=== PATIENT | female | born 1985 | race African-American/Black ===

== ENCOUNTER 2017-12-31 14:12 | Emergency (ER) | payer OTHER ==
[~2017-12-31] VITALS: Ht 162.6 cm; Wt 85.5 kg
[~2017-12-31 14:12] MED LIST: FIORINAL2 PO; PROM25SU8 PO
[2017-12-31 14:21] VITALS: BP 121/76; PULSE 68; RESP 16; TEMP 97.9; O2SAT 98
[2017-12-31] MEDS ORDERED: [UNRECOGNIZED DRUG - OTHER] (14:42)
[2017-12-31] MEDS ORDERED: METF500T PO (14:42)
--- NOTE | 2017-12-31 14:50 | PD ---
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 She denies vaginal bleeding, vaginal discharge, dysuria, vomiting, diarrhea or other concurrent complaints. She denies taking any medication for the pain. She states she is not taking her metformin for a week as it just came in the mail today. Quality pain is sharp. Severity is severe per patient. Pain is worse with movement. She denies other modifying factors. Patient notes for years ago when she had another partner in addition to her boyfriend she had chlamydia that she has only had one partner since. [facility] Past Medical History Diabetes: Yes (type 2) Diminished Hearing: No ?: Not LMP: 12/05/17 Past Surgical History Other Surgery: Yes (btl) Social History Alcohol Use: No Tobacco Use: Yes (10/08 ppd) Substance Use: No Allergies-Medications (Allergen,Severity, Reaction): Coded Allergies: No Known Allergies (Unverified Adverse Reaction, Unknown, 12/31/17) Reported Meds & Prescriptions Reported Meds & Active Scripts Active Reported [fertility meds (2)] Metformin (Metformin HCl) 500 Mg Tab 500 Mg PO DAILY With a meal Review of Systems Except as stated in HPI: all other systems reviewed are Neg Physical Exam Narrative GENERAL: 32 y/o female in no apparent distress SKIN: Focused skin assessment warm/dry. HEAD: Atraumatic. Normocephalic. EYES: Pupils equal and round. No scleral icterus. No injection or drainage. ENT: No nasal bleeding or discharge. Mucous membranes pink and moist. NECK: Trachea midline. CARDIOVASCULAR: Regular rate and rhythm. RESPIRATORY: No accessory muscle use. Clear to auscultation. Breath sounds equal bilaterally. GASTROINTESTINAL: Abdomen soft, ttp in suprapubic area, nondistended. no rebound MUSCULOSKELETAL: No obvious deformities. No clubbing. No cyanosis. No edema. NEUROLOGICAL: Awake and alert. Motor grossly within normal limits. Normal speech. GENITOURINARY: Normal external genitalia without lesions or erythema. Vaginal vault without blood, small amount of white drainage. Cervical os was closed without drainage. No cervical motion tenderness. Uterus nontender. Bilateral adnexa nontender Data Data Last Documented VS Vital Signs Date Time Temp Pulse Resp B/P (MAP) Pulse Ox O2 Delivery O2 Flow Rate FiO2 12/31/17 18:24 68 16 114/61 (78) 100 Room Air 12/31/17 14:21 97.9 Orders Orders Ed Urine Pregnancytest Poc (12/31/17 14:33) Urinalysis - C+S If Indicated (12/31/17 14:45) Blood Glucose (12/31/17 14:45) Gc And Chlamydia Pcr (12/31/17 14:45) Wet Prep Profile (12/31/17 14:45) Ct Abd/Pel W/O Iv Contrast (12/31/17 ) Us Pelvis Comp Mixer Lever Operator/Non-Preg (12/31/17 16:52) Iv Access Insert/Monitor (12/31/17 16:52) Complete Blood Count With Diff (12/31/17 16:52) Basic Metabolic Panel (Bmp) (12/31/17 16:52) Morphine Inj (Morphine Inj) (12/31/17 17:00) Ondansetron Inj (Zofran Inj) (12/31/17 17:00) Labs Laboratory Tests Test 12/31/17 14:55 12/31/17 17:05 Urine Color YELLOW Urine Turbidity CLEAR Urine pH 6.0 Urine Specific [place] GREATER/EQUAL 1.030 Urine Protein NEG mg/dL Urine Glucose (UA) NEG mg/dL Urine Ketones TRACE mg/dL Urine Occult Blood NEG Urine Nitrite NEG Urine Bilirubin NEG Urine Urobilinogen 1.0 MG/DL Urine Leukocyte Esterase NEG Urine RBC 0-3 /hpf Urine WBC 3-5 /hpf Urine Squamous Epithelial Cells 0-5 /hpf Urine Bacteria OCC /hpf Microscopic Urinalysis Comment CULT NOT INDICATED Clue Cells (Wet Prep) NONE SEEN Vaginal Trichomonas (Wet Prep) NONE SEEN Vaginal Yeast (Wet Prep) NONE SEEN White Blood Count 14.0 TH/MM3 Red Blood Count 5.00 MIL/MM3 Hemoglobin 13.1 GM/DL Hematocrit 39.8 % Mean Corpuscular Volume 79.6 FL Mean Corpuscular Hemoglobin 26.2 PG Mean Corpuscular Hemoglobin Concent 33.0 % Red Cell Distribution Width 13.3 % Platelet Count 239 TH/MM3 Mean Platelet Volume 8.4 FL Neutrophils (%) (Auto) 74.4 % Lymphocytes (%) (Auto) 20.7 % Monocytes (%) (Auto) 4.3 % Eosinophils (%) (Auto) 0.3 % Basophils (%) (Auto) 0.3 % Neutrophils # (Auto) 10.5 TH/MM3 Lymphocytes # (Auto) 2.9 TH/MM3 Monocytes # (Auto) 0.6 TH/MM3 Eosinophils # (Auto) 0.0 TH/MM3 Basophils # (Auto) 0.0 TH/MM3 CBC Comment DIFF FINAL Differential Comment Blood Urea Nitrogen 11 MG/DL Creatinine 0.77 MG/DL Random Glucose 81 MG/DL Calcium Level 8.8 MG/DL Sodium Level 137 MEQ/L Potassium Level 3.9 MEQ/L Chloride Level 106 MEQ/L Carbon Dioxide Level 25.1 MEQ/L Anion Gap 6 MEQ/L Estimat Glomerular Filtration Rate 107 ML/MIN MDM Medical Decision Making Medical Screen Exam Complete: Yes Emergency Medical Condition: Yes Medical Record Reviewed: Yes (pmh confirmed) Interpretation(s) glucose is normal at 90 beta is negative CBC & BMP Diagram 12/31/17 17:05 Calcium Level 8.8 Last 24 hours Impressions Abdomen/Pelvis CT 12/31/17 0000 Signed Impressions: Service Date/Time: Sunday, December 31, 2017 16:18 - CONCLUSION: 1. Large complex cystic mass in the right adnexa measuring up to 11.4 x 5.5 cm. Recommend ultrasound followup. Upper abdomen unremarkable. Dillan Carty MD Pelvic ultrasound shows 10.9 cm complex ovarian cysts. Discussed with radiologist and states no torsion Differential Diagnosis Cyst, musculoskeletal strain, UTI, , ectopic Narrative Course Will check Accu-Chek, urinalysis, test and reevaluate test is negative. Will proceed with CT imaging given amount of pain and reevaluate CT with large ovarian cyst will add on blood work and ultrasound to rule out torsion and dose with morphine and Zofran Ultrasound shows 10.9 cm complex ovarian cysts. We'll discuss with gynecology Patient updated and agrees to transfer Physician Communication Physician Communication dr udran requests ed to ed transfer for evaluation dr white given report Diagnosis Primary Impression: Complex cyst of right ovary Additional Impression: Abdominal pain Qualified Codes: R10.31 - Right lower quadrant pain Lavinia Loya MD Dec 31, 2017 14:50
[2017-12-31 15:21] LABS: BILIRUBIN, URINE NEG (NEG); BLOOD, URINE NEG (NEG); GLUCOSE,URINE NEG (NEG); KETONE, URINE TRACE mg/dL (NEG); NITRITE,URINE NEG (NEG); URINE COLOR YELLOW (YELLW/STRAW); URINE LEUKOCYTE ESTERASE NEG (NEG)
[2017-12-31 15:58] LABS: BACTERIA, URINE OCC /hpf; RBC, URINE 0-3 /hpf (0-3); SQUAMOUS EPITHELIAL CELL URINE 0-5 /hpf (0-5)
[2017-12-31 16:44] VITALS: BP 107/56; PULSE 67; RESP 17; O2SAT 100
--- NOTE | 2017-12-31 16:48 | RADRPT ---
EXAM DATE/TIME: 12/31/2017 16:18 [facility] COMPARISON: No previous studies available for comparison. INDICATIONS : Lower abdominal pain. ORAL CONTRAST: No oral contrast ingested. RADIATION DOSE: 15.54 CTDIvol (mGy) MEDICAL HISTORY : Diabetes. SURGICAL HISTORY : None. ENCOUNTER: Initial ACUITY: 1 day PAIN SCALE: 5/10 LOCATION: lower quadrant TECHNIQUE: Volumetric scanning of the abdomen and pelvis was performed. Using automated exposure control and ad justment of the mA and/or kV according to patient size, radiation dose was kept as low as reasonably achievable to obtain optimal diagnostic quality images. DICOM format image data is available electro nically for review and comparison. FINDINGS: Lung bases are clear. No acute findings in the liver, spleen, adrenals, kidneys or pancreas. No galls tones or biliary ductal dilatation. No bowel obstruction. No free air or free fluid. There is an oval-shaped pelvic mass on the right measuring up to 11.4 x 5.5 cm. They appear to be mul tiple septations measures in the complex cyst. Recommend followup on pelvic ultrasound. CONCLUSION: 1. Large complex cystic mass in the right adnexa measuring up to 11.4 x 5.5 cm. Recommend ultrasound followup. Upper abdomen unremarkable. Dillan Carty MD on December 31, 2017 at 16:43 Board Certified Radiologist. This report was verified electronically.
[2017-12-31] MEDS ORDERED: MORPHINE SULFATE 4 MG/ML INJ IV PUSH ONE (17:00)
[2017-12-31] MEDS ORDERED: ONDANSETRON HCL 4 MG/2 ML VIAL IV PUSH ONE (17:00)
[2017-12-31 17:29] LABS: AUTOMATED NEUTROPHIL # 10.5 TH/MM3 (1.8-7.7); BASOPHIL % 0.3 % (0.0-2.0); EOSINOPHIL % 0.3 % (0.0-4.0); HEMATOCRIT 39.8 % (35.0-46.0); HEMOGLOBIN 13.1 GM/DL (11.6-15.3); LYMPH % 20.7 % (9.0-44.0); LYMPHOCYTE # 2.9 TH/MM3 (1.0-4.8); MEAN CELL VOLUME 79.6 FL (80.0-100.0); MEAN CORPUSCULAR HEMOGLOBIN 26.2 PG (27.0-34.0); MEAN PLATELET VOLUME 8.4 FL (7.0-11.0); MONO % 4.3 % (0.0-8.0); MONOCYTE # 0.6 TH/MM3 (0-0.9); NEUT % 74.4 % (16.0-70.0); PLATELET COUNT 239 TH/MM3 (150-450); RED CELL DISTRIBUTION WIDTH 13.3 % (11.6-17.2)
[2017-12-31 17:42] LABS: CALCIUM 8.8 MG/DL (8.5-10.1)
[2017-12-31 17:43] LABS: BICARBONATE 25.1 MEQ/L (21.0-32.0)
[2017-12-31 17:46] LABS: CREATININE 0.77 MG/DL (0.50-1.00)
--- NOTE | 2017-12-31 18:11 | RADRPT ---
EXAM DATE/TIME: 12/31/2017 17:31 This report includes an Addendum and supersedes previous reports for this exam. [facility] COMPARISON: CT ABDOMEN & PELVIS W/O CONTRAST, December 31, 2017, 16:18. INDICATIONS : Right lower quadrant pain. MEDICAL HISTORY : Chronic back pain. Diabetes. SURGICAL HISTORY : None. ENCOUNTER: Initial ACUITY: 1 day PAIN SCORE: 8/10 LOCATION: Right lower quadrant. MEASUREMENTS: UTERUS: 7.7 x 4.3 x 4.0 cm ENDOMETRIAL STRIPE: 7 mm RIGHT OVARY: 10.9 x 7.0 x 6.0 cm LEFT OVARY: 4.9 x 2.5 x 2.5 cm FINDINGS: UTERUS: The myometrium has homogeneous echotexture without mass. RIGHT OVARY: There is a right adnexal mass measuring 10.9 x 7.0 x 6.0 cm. There are 2 large cystic components nidhi uring 5.3 x 5.3 x 5.1 cm and 3.4 x 3.5 x 3.5 cm. There is increased echogenicity within the cysts. Th ere is a thickened septation between the cystic areas. A separate right ovary is not seen. LEFT OVARY: Ovary contains no mass or significant cystic lesion. MISCELLANEOUS: No free fluid. 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 TOAs could have this appearance but typically they are bilateral. The left ovary appears normal. The uterus appears normal. Zion Doss MD on December 31, 2017 at 18:06 Board Certified Radiologist. This report was verified electronically. ADDENDUM: Color Doppler flow is seen in the left ovary and the right adnexal mass. Zion Doss MD on December 31, 2017 at 18:21 Board Certified Radiologist. This report was verified electronically.
[2017-12-31 18:24] VITALS: BP 114/61; PULSE 68; RESP 16; O2SAT 100
[2017-12-31 21:20] VITALS: BP 132/68
[2017-12-31] MEDS ORDERED: IBUP-232 PO (22:53)
== END 2017-12-31 21:20 | disposition short-term general hospital (02) ==
LOC: PHED 14:12
DX: N83.291 Other ovarian cyst, right side (principal); R10.31 Right lower quadrant pain; E11.9 Type 2 diabetes mellitus without complications; F17.210 Nicotine dependence, cigarettes, uncomplicated; Z79.84 Long term (current) use of oral hypoglycemic drugs; Z79.899 Other long term (current) drug therapy
CPT/HCPCS: 74176; 76856; 80048; 81001; 84703; 85025; 87210; 87491; 87591; 96374; 96375; 99285; J2270; J2405

== ENCOUNTER 2017-12-31 21:50 | Emergency (ER) | payer OTHER ==
[~2017-12-31] VITALS: Ht 162.6 cm; Wt 80.0 kg
[~2017-12-31 21:50] MED LIST changes: +METF500T PO; +[UNRECOGNIZED DRUG - OTHER]
[2017-12-31 22:02] VITALS: BP 120/65; PULSE 59; RESP 14; O2SAT 100
--- NOTE | 2017-12-31 22:28 | PD ---
HPI Chief Complaint: Abdominal Pain Time Seen by Provider: 22:22 Travel History International Travel<30 days: No Contact w/Intl Traveler<30days: No Traveled to known affect area: No History of Present Illness HPI The patient is a 32 year old female who presents to the [facility] emergency department with a history of being transferred over to this facility from the [facility] for evaluation by the auto clocks repairer. The patient was seen at the [facility] emergency department related to abdominal pain in the lower abdomen after intercourse this afternoon. The patient had laboratory studies and an abdominal and pelvis CT done at the other facility. Laboratory studies were remarkable for a white count of 14, CT scan of the abdomen and pelvis showed a large complex cystic mass in the right adnexa measuring 11.4 x 5.5 cm. It was recommended an ultrasound be done to rule out torsion. The ultrasound revealed a 10.9 cm complex right adnexal mass although likely related to right ovarian neoplasm. Tubo-ovarian abscess could have this appearance but typically they are bilateral. The left ovary appears normal. Color flow is seen in the left ovary and the right adnexal mass, therefore no evidence of torsion was noted. On arrival to the emergency department the auto clocks repairer was called to assess the patient in the emergency department. [facility] Past Medical History Narrative Medical The patient's past medical history is significant for diabetes mellitus. Diabetes: Yes (type 2) Patient Takes Glucophage: Yes (12/27/17) Diminished Hearing: No Musculoskeletal: Yes (chronic back pain) Psychiatric: Yes (PTSD) ?: Not LMP: 12/05/17 : 2 Para: 0 Miscarriage: 2 Past Surgical History Narrative Surgical The patient's past surgical history is significant for a bilateral tubal ligation. Other Surgery: Yes (btl) Social History Alcohol Use: Yes (rare) Tobacco Use: Yes (One half pack per day) Substance Use: No Allergies-Medications (Allergen,Severity, Reaction): Coded Allergies: No Known Allergies (Unverified Adverse Reaction, Unknown, 12/31/17) Reported Meds & Prescriptions Reported Meds & Active Scripts Active Reported [fertility meds (2)] Metformin (Metformin HCl) 500 Mg Tab 500 Mg PO DAILY With a meal Review of Systems Except as stated in HPI: all other systems reviewed are Neg General / Constitutional: No: Fever Eyes: No: Visual changes HENT: No: Headaches Cardiovascular: No: Chest Pain or Discomfort Respiratory: No: Shortness of Breath Gastrointestinal: Positive: Abdominal Pain Genitourinary: No: Dysuria Musculoskeletal: No: Pain Skin: No Rash Neurologic: No: Weakness Psychiatric: No: Depression Endocrine: No: Polydipsia Hematologic/Lymphatic: No: Easy Bruising Physical Exam Narrative General: The patient is a well-developed well-nourished female in no acute distress. Head and Neck exam: Head is normocephalic atraumatic. Eyes: EOMI, pupils are equal round and reactive to light. Nose: Midline septum with pink mucous membranes Mouth: Dentition unremarkable. Moist mucus membranes. Posterior oropharynx is not erythematous. No tonsillar hypertrophy. Uvula midline. Airway patent. Neck: No palpable lymphadenopathy. No nuchal rigidity. No thyromegaly. Cardiovascular: Regular rate and rhythm without murmurs, gallops, or rubs. Lungs: Clear to auscultation bilaterally. No wheezes, rhonchi, or rales. Abdomen: Soft, without tenderness to palpation in all 4 quadrants of the abdomen. No guarding, rebound, or rigidity. Normal bowel sounds are audible. No tenderness on palpation of McBurney's point. Negative Wagner sign. Extremities: No clubbing, cyanosis, or edema. Back: No costovertebral angle tenderness to palpation. Neurologic Exam: Grossly nonfocal Skin Exam: No rash noted. Intact skin that is warm and dry. Data Data Last Documented VS Vital Signs Date Time Temp Pulse Resp B/P (MAP) Pulse Ox O2 Delivery O2 Flow Rate FiO2 12/31/17 22:02 59 14 120/65 (83) 100 Orders Orders Electrocardiogram (12/31/17 22:38) [facility] Medical Decision Making Medical Screen Exam Complete: Yes Emergency Medical Condition: Yes Medical Record Reviewed: Yes Differential Diagnosis Ovarian mass, versus tubo-ovarian abscess Narrative Course During the course of the patient's emergency department visit, the patient's history, examination, and differential diagnosis were reviewed with the patient. The patient was placed on a monitor technician with oximetry and frequent blood pressure monitoring. The patient had IV access obtained and blood work sent for analysis. The auto clocks repairer secondary school teacher librarian was called by the charge nurse upon the patient's arrival in the emergency department. Dr. Bermeo will be evaluating the patient. The patient was initially provided over at the [facility] morphine for pain, Zofran for nausea. The patient's laboratory studies were reviewed and remarkable for right count of 14, hemoglobin 13.1, platelets 239 with 74.4 neutrophils, basic metabolic profile is unremarkable, test is negative. Urinalysis shows no acute abnormality Radiology studies were reviewed and remarkable for a CT scan of the abdomen and pelvis that shows a large complex cystic mass in the right adnexa measuring up to 11.4 x 5.5 cm. An ultrasound of the pelvis that shows a 10.9 cm complex right adnexal mass although likely related to a right ovarian neoplasm. Left ovary appears normal. Doppler flow is seen in both ovaries. Dr. Bermeo evaluated the patient and from discussion further with her reports that it is likely related to endometriosis. The patient reports that she was diagnosed with endometriosis a year ago by her auto clocks repairer. He recommended that she be discharged home with alternating 600 mg of ibuprofen every 8 hours with 1 g of Tylenol every 6 hours as needed for pain. He recommended that she follow-up with her auto clocks repairer. The patient was instructed to follow-up with her auto clocks repairer in the morning regarding this emergency department visit to schedule an appointment for follow-up. The patient is resting comfortably and feels better, is alert and in no distress. The patient's results and examination findings were discussed with the patient. The repeat examination is unremarkable and benign. The history, exam, diagnostic testing, and current condition do not suggest any significant pathology to warrant further testing, continued ED treatment, admission, or surgical evaluation at this point. The vital signs have been stable. The patient does not have uncontrollable pain, intractable vomiting, or other significant symptoms. The patient's condition is stable and appropriate for discharge. The patient will pursue further outpatient evaluation with a primary care physician or other designated or consulting physician as indicated in the discharge instructions. The patient expressed understanding and was agreeable with this plan. Diagnosis Primary Impression: Complex cyst of right ovary Referrals: [facility] call for appointment Patient Instructions: General Instructions, Ovarian Cyst (ED) Additional Instructions: Take 600 mg of ibuprofen every 8 hours with 1 g of Tylenol every 6 hours as needed for pain. He recommended that she follow-up with her auto clocks repairer. The patient was instructed to follow-up with her auto clocks repairer in the morning regarding this emergency department visit to schedule an appointment for follow- up. Med/Other Pt SpecificInfo: Prescription(s) given Scripts Ibuprofen (Ibuprofen) 600 Mg Tab 600 MG PO Q8HR Y for PAIN, #12 TAB 0 Refills Prov: Filomena López MD 12/31/17 Disposition: 01 DISCHARGE HOME Condition: Stable Filomena López MD Dec 31, 2017 22:28
[2017-12-31] MEDS ORDERED: IBUP-232 PO (22:53)
--- NOTE | 2018-01-01 09:11 | PD.CONS ---
HPI Chief Complaint abdominal/pelvic pain Date Seen: Dec 31, 2017 Time Seen: 19:00 Travel History International Travel<30 Days: No Contact w/Intl Traveler<30Days: No Known Affected Area: No History of Present Illness HPI pt. is a 32 y/o present to ed after transfer from [place] ED w/ c/o pelvic/low abdominal pain. pt. had intercourse w/ partner earlier in day , and immediately after had severe pelvic/lower abdominal pain. pt. pain was 10/10 and sharp and crampy in nature. pt. was in a "ball" and nothing made pain better until she was seen in ed and given morphine which relieved the pain. pt. states she voided and had bm w/o diff or pain. denies n /v. pt. has remote h/o chlamydia and both were treated w/o further incident. while at po ed, pt. had ct and u/s show adnexal mass ~ 10cm. u/s show as 2 complex masses ~ 5cm each. pt. states no longer having pain and can ambulate w/o diff. is hungry. Para: 0 : 2 Miscarriage: 2 History Past Medical History Narrative Medical has h/o ptsd and being treated for. Obstetric History Obstetric History , sab x 2 Past Surgical History Surgical History: No Previous Surgery Family History Family History: Negative Social History Alcohol Use: No Tobacco Use: No Substance Abuse: No Allergies-Medications (Allergen,Severity, Reaction): Coded Allergies: No Known Allergies (Unverified Adverse Reaction, Unknown, 12/31/17) Home Meds Active Scripts Ibuprofen (Ibuprofen) 600 Mg Tab, 600 MG PO Q8HR Y for PAIN, #12 TAB 0 Refills Prov:Filomena López MD 12/31/17 Reported Medications [fertility meds (2)] No Conflict Check 12/31/17 Metformin (Metformin) 500 Mg Tab, 500 MG PO DAILY for Blood Sugar Management, # 30 TAB 0 Refills With a meal 12/31/17 Review of Systems Except as stated in HPI: all other systems reviewed are Neg Physical Exam Vital Signs Date Time Temp Pulse Resp B/P (MAP) Pulse Ox O2 Delivery O2 Flow Rate FiO2 12/31/17 22:02 59 14 120/65 (83) 100 Narrative GENERAL: Well-nourished, well-developed patient. SKIN: Warm and dry. HEAD: Normocephalic and atraumatic. EYES: No scleral icterus. No injection or drainage. ENT: No nasal drainage noted. Mucous membranes pink. Airway patent. NECK: Supple, trachea midline. No JVD. CARDIOVASCULAR: Regular rate and rhythm without murmurs, gallops, or rubs. RESPIRATORY: Breath sounds equal bilaterally. No accessory muscle use. BREASTS: Bilateral exam showed no masses , no retractions, no nipple discharge. ABDOMEN/GI: Abdomen soft, non-tender, bowel sounds present, no rebound, no guarding EXTREMITIES: No cyanosis or edema. BACK: Nontender without obvious deformity. No CVA tenderness. NEUROLOGICAL: Awake and alert. Motor and sensory grossly within normal limits. Five out of 5 muscle strength in all muscle groups. Normal speech. Data Data Vital Signs Reviewed: Yes Orders Orders Ed Discharge Order (12/31/17 23:01) [facility] Medical Record Reviewed: Yes Plan pt. w/ a complex adnexal mass and resolved pain. condition d/w pt. pt. to follow up w/ primary it coordinator. all ? answered. pt. to be d/c to home. given precautions for return. Disposition: 01 DISCHARGE HOME Condition: Stable Scripts Ibuprofen (Ibuprofen) 600 Mg Tab 600 MG PO Q8HR Y for PAIN, #12 TAB 0 Refills Prov: Filomena López MD 12/31/17 Referrals: Shop Teacher call for appointment Patient Instructions: General Instructions, Ovarian Cyst (ED) Additional Instructions: Take 600 mg of ibuprofen every 8 hours with 1 g of Tylenol every 6 hours as needed for pain. He recommended that she follow-up with her retail presentation specialist. The patient was instructed to follow-up with her retail presentation specialist in the morning regarding this emergency department visit to schedule an appointment for follow- up. Departure Forms: Tests/Procedures Nolberto Bermeo Jr., MD Jan 01, 2018 09:11
== END 2017-12-31 23:16 | disposition home or self-care (01) ==
LOC: NEPC 21:50
DX: N83.201 Unspecified ovarian cyst, right side (principal); E11.9 Type 2 diabetes mellitus without complications; F43.10 Post-traumatic stress disorder, unspecified; F17.200 Nicotine dependence, unspecified, uncomplicated; Z79.899 Other long term (current) drug therapy
CPT/HCPCS: 99284